=== PATIENT | female | born 1955 ===

== ENCOUNTER 2020-10-14 11:45 | Inpatient (IN) | payer OTHER ==
[~2020-10-14] VITALS: Ht 162.6 cm; Wt 97.5 kg
[2020-10-14] MEDS ORDERED: HYDROCHLOROTHIA25 MG PO (15:25)
[2020-10-14] MEDS ORDERED: COZAAR100 MG PO (15:25)
[2020-10-14] MEDS ORDERED: D3 + K2 DOTS 11 EACH PO (15:25)
[2020-10-22] MEDS ORDERED: BACITRACIN28.4 G1 (08:18)
[2020-10-22] MEDS ORDERED: VITAMIN D3250 MCG (08:19)
[2020-10-22] MEDS ORDERED: SLEEP AID25 M1 (08:19)
[2020-10-24] MEDS ORDERED: ULTRACET PO (13:47)
[2020-10-24] MEDS ORDERED: PRILOSEC OTC20 MG PO (13:48)
== END 2020-10-24 14:08 | disposition home or self-care (01) | DRG 331 ==
LOC: O/R 10-21 07:11 → SURG 10-21 07:11
PROVIDERS: ADMIT Surgery; ATTEND Surgery
PROC: 0DTP4ZZ Resection of Rectum, Percutaneous Endoscopic Approach (ICD-10-PCS; 2020-10-21)
PROC: 07BC4ZX Excision of Pelvis Lymphatic, Percutaneous Endoscopic Approach, Diagnostic (ICD-10-PCS; 2020-10-21)
PROC: 0DJD8ZZ Inspection of Lower Intestinal Tract, Via Natural or Artificial Opening Endoscopic (ICD-10-PCS; 2020-10-21)
PROC: 0DBN4ZZ Excision of Sigmoid Colon, Percutaneous Endoscopic Approach (ICD-10-PCS; principal; 2020-10-21 09:00)
DX: C18.7 Malignant neoplasm of sigmoid colon (principal); I13.10 Hypertensive heart and chronic kidney disease without heart failure, with stage 1 through stage 4 chronic kidney disease, or unspecified chronic kidney disease; N18.31 Chronic kidney disease, stage 3a; E66.8 Other obesity; Z68.37 Body mass index [BMI] 37.0-37.9, adult

== ENCOUNTER 2020-10-19 10:34 | Day surgery (SDC) | payer OTHER ==
[~2020-10-19 10:34] MED LIST: COZAAR100 MG PO; D3 + K2 DOTS 11 EACH PO; HYDROCHLOROTHIA25 MG PO
== END 2020-10-19 18:30 | disposition home or self-care (01) ==
LOC: AMB-ENDOS 10:34
PROVIDERS: ATTEND Surgery
DX: D49.0 Neoplasm of unspecified behavior of digestive system (principal); Z20.822 Contact with and (suspected) exposure to COVID-19